=== PATIENT | female | born 1950 | race Caucasian/White ===

== ENCOUNTER 2017-06-28 15:39 | Emergency (ER) | payer MEDICARE, OTHER ==
[~2017-06-28] VITALS: Ht 162.6 cm; Wt 75.8 kg
[2017-06-28] MEDS ORDERED: METHYLPREDNISOLO4 M1 PO (16:58)
--- NOTE | 2017-06-28 19:35 | EKG ---
[facility] [address] [facility] [place] [address] Signed Normal sinus rhythm Minimal voltage criteria for LVH, may be normal variant Borderline ECG No previous ECGs available Confirmed by MARGARITA TRIPP MD ([id number]) on 06/28/2017 7:35:41 PM Electronically Signed By: MARGARITA TRIPP MD 06/28/17 1935 PATIENT NAME: PUMA PUGH Electrocardiogram DATE OF : 48 PHYSICIAN: MARGARITA TRIPP MD REPORT #: [id number] REPORT IS CONFIDENTIAL AND NOT TO BE RELEASED WITHOUT AUTHORIZATION
== END 2017-06-28 17:13 | disposition home or self-care (01) ==
LOC: ED 15:39
DX: S16.1XXA Strain of muscle, fascia and tendon at neck level, initial encounter (principal); R07.9 Chest pain, unspecified; X58.XXXA Exposure to other specified factors, initial encounter
CPT/HCPCS: 71045; 80053; 81001; 84484; 85025; 93005; 93010; 96374; 99283; J2060

== ENCOUNTER 2017-07-10 19:29 | Emergency (ER) | payer MEDICARE, OTHER ==
[~2017-07-10] VITALS: Ht 162.6 cm; Wt 75.8 kg
[~2017-07-10 19:29] MED LIST: METHYLPREDNISOLO4 M1 PO
[2017-07-10] MEDS ORDERED: ASPIRIN81 MG PO (19:51)
--- NOTE | 2017-07-12 15:28 | EKG ---
[facility] [address] [facility] [place] [address] Signed Sinus bradycardia Otherwise normal ECG When compared with ECG of 28-JUN-2017 16:08, No significant change was found Confirmed by MARGARITA TRIPP MD ([id number]) on 07/12/2017 3:28:00 PM Electronically Signed By: MARGARITA TRIPP MD 07/12/17 1528 PATIENT NAME: PMUA PUGH Electrocardiogram DATE OF : 48 PHYSICIAN: MARGARITA TRIPP MD REPORT #: [id number] REPORT IS CONFIDENTIAL AND NOT TO BE RELEASED WITHOUT AUTHORIZATION
== END 2017-07-10 23:47 | disposition home or self-care (01) ==
LOC: ED 19:29
DX: R20.2 Paresthesia of skin (principal); Z86.73 Personal history of transient ischemic attack (TIA), and cerebral infarction without residual deficits; Z79.899 Other long term (current) drug therapy; Z79.82 Long term (current) use of aspirin
CPT/HCPCS: 70450; 70496; 70498; 80053; 84484; 85025; 85610; 85730; 93005; 93010; 96374; 96375; 99284; J2270; J2405; Q9967

== ENCOUNTER 2017-07-14 01:47 | Emergency (ER) | payer MEDICARE, OTHER ==
[~2017-07-14] VITALS: Ht 162.6 cm; Wt 73.0 kg
[~2017-07-14 01:47] MED LIST changes: +ASPIRIN81 MG PO
== END 2017-07-14 03:21 | disposition home or self-care (01) ==
LOC: ED 01:47
DX: I10 Essential (primary) hypertension (principal); Z79.82 Long term (current) use of aspirin; Z86.73 Personal history of transient ischemic attack (TIA), and cerebral infarction without residual deficits
CPT/HCPCS: 96372; 99282; J2060

== ENCOUNTER 2017-11-05 18:46 | Emergency (ER) | payer MEDICARE, OTHER ==
[~2017-11-05] VITALS: Ht 162.6 cm; Wt 71.7 kg
[2017-11-05] MEDS ORDERED: KEPPRA500 MG PO (21:19)
--- NOTE | 2017-11-06 16:22 | EKG ---
[facility] [address] [facility] [place] [address] Signed Sinus bradycardia Otherwise normal ECG When compared with ECG of 10-JUL-2017 21:37, No significant change was found Confirmed by MARGARITA TRIPP MD ([id number]) on 11/06/2017 4:22:02 PM Electronically Signed By: MARGARITA TRIPP MD 11/06/17 1622 PATIENT NAME: PUMA PUGH Electrocardiogram DATE OF : 48 PHYSICIAN: MARGARITA TRIPP MD REPORT #: [id number] REPORT IS CONFIDENTIAL AND NOT TO BE RELEASED WITHOUT AUTHORIZATION
== END 2017-11-05 21:40 | disposition home or self-care (01) ==
LOC: ED 18:46
DX: R56.9 Unspecified convulsions (principal); Z86.73 Personal history of transient ischemic attack (TIA), and cerebral infarction without residual deficits; Z79.82 Long term (current) use of aspirin
CPT/HCPCS: 70450; 80053; 81001; 85025; 93005; 93010; 99284; G0480

== ENCOUNTER 2021-06-21 16:32 | Emergency (ER) | payer MEDICARE ==
[~2021-06-21] VITALS: Ht 162.6 cm; Wt 63.1 kg
[~2021-06-21 16:32] MED LIST changes: +KEPPRA500 MG PO
[2021-06-21] MEDS ORDERED: AMLODIPINE BES2.5 MG PO (17:32)
[2021-06-21] MEDS ORDERED: VENTOLIN HFA18 GM INH (17:35)
== END 2021-06-21 17:47 | disposition home or self-care (01) ==
LOC: ED 16:32
DX: U07.1 COVID-19 (principal); I10 Essential (primary) hypertension; Z79.899 Other long term (current) drug therapy; Z79.82 Long term (current) use of aspirin
CPT/HCPCS: 99284

== ENCOUNTER 2021-06-26 05:32 | Emergency (ER) | payer MEDICARE ==
[~2021-06-26] VITALS: Ht 162.6 cm; Wt 63.0 kg
[~2021-06-26 05:32] MED LIST changes: +AMLODIPINE BES2.5 MG PO; +VENTOLIN HFA18 GM INH
--- OUTSIDE RECORDS SUMMARY | 2021-06-26 05:38 | XMS ---
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 Danielle has no Care Guidelines for this patient. [facility] MO.) [facility] NOTE: Visits indicate total known visits. [place] [place]12 MO.) 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
[2021-06-26] MEDS ORDERED: EZETIMIBE10 MG PO (05:49)
[2021-06-26] MEDS ORDERED: NORVASC2.5 MG PO (06:18)
== END 2021-06-26 06:42 | disposition home or self-care (01) ==
LOC: ED 05:32
DX: I10 Essential (primary) hypertension (principal); U07.1 COVID-19; F06.4 Anxiety disorder due to known physiological condition; Z79.899 Other long term (current) drug therapy; Z79.82 Long term (current) use of aspirin
CPT/HCPCS: 99283

== ENCOUNTER 2022-05-28 14:08 | Emergency (ER) | payer MEDICARE, OTHER ==
[~2022-05-28] VITALS: Ht 162.6 cm; Wt 69.1 kg
[~2022-05-28 14:08] MED LIST changes: +EZETIMIBE10 MG PO; +NORVASC2.5 MG PO; +TYLENOL325 M1 PO
--- OUTSIDE RECORDS SUMMARY | 2022-05-28 14:16 | XMS ---
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 Care History Medical/Surgical 06/29/2021 [facility] Follow up with Dr. Tripp on 07/14/2021. 06/28/2021 [facility] - Patient is currently established with [facility]. If patient is seen in the ED during business hours. Please contact CHWs at [facility]. Care Recommendation: If this patient has had 5 or more Emergency Department visits in the last 12 months.\T\nbsp; Patient will require education on the scope and purpose of the ED as an acute care provider not a Primary Care Provider and should not be utilized for chronic conditions.\T\nbsp; These are guidelines and the provider should exercise clinical judgment when providing care. E.D. VISIT COUNT (12 MO.) 3 [facility] TOTAL 3 NOTE: Visits indicate total known visits. 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 - COVID-19 - Essential (primary) hypertension INPATIENT VISIT TRACKING (12 MO.) 09/09/2021 11:01 [facility] [place] TYPE: Observation COMPLAINT: - EXPLORATION OF PARATHYROID ADENOMA W/[facility] DIAGNOSES: - Personal history of transient ischemic attack (TIA), and cerebral infarction without residual deficits - Benign neoplasm of thyroid gland - Benign neoplasm of parathyroid gland - Nontoxic single thyroid nodule - Other chronic pain - Essential (primary) hypertension - Epilepsy, unspecified, not intractable, without status epilepticus [email or web address]
[2022-05-28] MEDS ORDERED: ONDANSETRON ODT4 MG PO (18:09)
== END 2022-05-28 18:18 | disposition home or self-care (01) ==
LOC: ED 14:08
DX: R10.11 Right upper quadrant pain (principal); R11.2 Nausea with vomiting, unspecified; M19.90 Unspecified osteoarthritis, unspecified site; I10 Essential (primary) hypertension; Z79.899 Other long term (current) drug therapy; Z79.82 Long term (current) use of aspirin
CPT/HCPCS: 36415; 76705; 80053; 81003; 83690; 85025; 96374; 96375; 99284-25; J1885; J2405; J7030

== ENCOUNTER 2022-11-11 09:41 | Emergency (ER) | payer MEDICARE, OTHER ==
[~2022-11-11] VITALS: Ht 162.6 cm; Wt 68.0 kg
[~2022-11-11 09:41] MED LIST changes: +ACETAMINOPHEN325 M1 PO; +MOTRIN IB200 MG PO; +ONDANSETRON ODT4 MG PO; +PEPCID20 MG PO; +PERCOCET 7.5-31 EACH PO; +TYLENOL EXTRA500 M2 PO; +VITAMIN D350 MCG PO
--- OUTSIDE RECORDS SUMMARY | 2022-11-11 09:45 | XMS ---
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 Care History Medical/Surgical 06/29/2021 [facility] Follow up with Dr. Tripp on 07/14/2021. 06/28/2021 [facility] - Patient is currently established with [facility]. If patient is seen in the ED during business hours. Please contact CHWs at [facility]. Care Recommendation: If this patient has had [...] care. E.D. VISIT COUNT (12 MO.) 3 [facility] TOTAL 3 NOTE: Visits indicate total known visits. ED/UCC VISIT TRACKING (12 MO.) 11/11/2022 09:42 [facility] TYPE: Emergency COMPLAINT: - BACK PAIN 06/04/2022 18:59 [facility] TYPE: Emergency COMPLAINT: - HIGH BLOOD AND ABD PAIN 05/28/2022 14:09 [facility] [place] TYPE: Emergency COMPLAINT: - ABD ISSUES,RT SIDED PAIN DIAGNOSES: - Essential (primary) hypertension - [facility] (current) use of aspirin - Nausea with vomiting, unspecified - Other detention (current) drug therapy - Right upper quadrant pain - Unspecified osteoarthritis, unspecified site INPATIENT VISIT TRACKING (12 MO.) 06/04/2022 19:00 [facility] TYPE: Observation COMPLAINT: - ACALCULOUS CHOLECYSTITIS, CONCURRENT INFFLUENZA A DIAGNOSES: - Acute cholecystitis - Contact with and (suspected) exposure to COVID-19 - Essential (primary) hypertension - Hyperlipidemia, unspecified - Influenza due to other identified influenza virus with other respiratory manifestations - [facility] (current) use of aspirin - Other rotary helper (current) drug therapy - Other specified diseases of gallbladder - Personal history of transient ischemic attack (TIA), and cerebral infarction without residual deficits - Right upper quadrant pain [email or web address]
[2022-11-11] MEDS ORDERED: PERCOCET 5-3251 EACH PO (14:15)
[2022-11-11] MEDS ORDERED: ONDANSETRON ODT8 MG PO (14:15)
[2022-11-11] MEDS ORDERED: METHYLPREDNISOLO4 M1 PO (14:19)
[2022-11-11 14:39] VITALS: BP 159/89
== END 2022-11-11 14:40 | disposition home or self-care (01) ==
LOC: ED 09:41
DX: M54.12 Radiculopathy, cervical region (principal); I10 Essential (primary) hypertension; Z98.1 Arthrodesis status; Z79.899 Other long term (current) drug therapy; Z79.82 Long term (current) use of aspirin
CPT/HCPCS: 72125; 99283-25; A9270; J8540